=== PATIENT | male | born 1955 | race Caucasian/White ===

== ENCOUNTER → 2016-03-19 | Outpatient (CLI) | payer BC ==
[~2016-03-19] MED LIST: AMOXICOT500 MG; ASPIRIN 81MG TA81 MG; AVAPRO150 MG; BYSTOLIC5 MG; CALCIUM 500 + D1 TA1; CALCIUM CARBONA1 TAB PO; CELEBREX200 MG; CRESTOR5 MG; CYMBALTA60 M1; FLECAINIDE ACE100 MG; FLOMAX 0.4MG C0.4 MG; VITAMIN D1000 IU; VOLTAREN75 MG; VYTORIN 10 MG-21 TAB
== END ==
LOC: LAB 10:05
DX: R97.20 Elevated prostate specific antigen [PSA] (principal)

== ENCOUNTER → 2016-12-03 | Outpatient (CLI) | payer BC | LOC: LAB 14:19 | DX: C61 Malignant neoplasm of prostate (principal); Z90.79 Acquired absence of other genital organ(s) ==

== ENCOUNTER 2016-12-27 09:16 | Day surgery (SDC) | payer BC ==
--- NOTE | 2016-12-27 11:27 | Operative Note ---
Surgeon/Diagnoses Surgeon/Brand Protection Manager(s) Date of procedure: 12/27/16 Surgeon: MD Nico Garcia Diagnoses Pre-op diagnosis: Screening colonoscopy Skin neoplasm of uncertain behavior (5 mm) on mid back Post-op diagnosis Same as preoperative diagnosis, with the addition of the following: Mild hemorrhoidal tags Colon polyps Procedure Procedure Procedure: Colonoscopy with polypectomy Excision of 5 mm skin lesion from mid back Indications: TESSIE SAUCEDA is a 61 year-old Male with a history of need for screening colonoscopy and a somewhat pedunculated skin neoplasm of uncertain behavior along the mid back that has been growing over the past few months. Findings: Bowel preparation moderate Fairly significant colonic tortuosity Fairly severe colonic spasticity Mild hemorrhoidal cushions with no thrombosis or bleeding Cecal polyp RIGHT colon polyp Polyp at 45 cm Adjacent complex polyps at 25 cm Procedure Description: After informed consent was obtained, the patient was taken to the endoscopy suite. IV sedation ensued after he was transferred to the LEFT lateral decubitus position. Digital rectal exam revealed some hemorrhoidal cushions/tags with no thrombosis or bleeding. The colonoscope was placed in position. The entire colon was evaluated. Bowel preparation was moderate with large volume irrigation and suctioning used to improve visualization. The patient had a fairly long and tortuous/spastic colon. Tortuosity was noted throughout. Fairly severe spasticity is also noted throughout the entire colon. Visualization was somewhat limited secondary to the above stated findings. A cecal polyp was excised with cold biopsy forceps. A RIGHT colon polyp was excised with cold biopsy forceps. A polyp at 45 cm was excised cold biopsy forceps. Adjacent complex polyps at [address] by [address] of snare polypectomy. No additional lesions were seen. The colonoscope was carefully removed and the patient was transferred to the procedure room for excision of the skin lesion. The mid back was prepped and draped in a sterile fashion. After infiltration with local anesthetic an elliptical incision was made around the lesion. The specimen was passed off for pathologic evaluation and skin was closed with 4-0 nylon. A sterile dressing was applied and the patient was transferred to recovery in stable condition. EBL (ml): 1 Anesthesia: IV sedation with 11 mg of Versed and 300 g of fentanyl. These note 1 mg of glucagon was also administered secondary to spasticity. Infiltration with 1 percent lidocaine was utilized for the skin lesion. Complications: No immediate Specimens: Cecal polyp RIGHT colon polyp Polyp at 45 cm Adjacent proximal polyps 25 cm (snared) Skin lesion mid back Disposition Disposition: Stable to recovery from where he will be discharged home. She will follow-up in one week. Repeat colonoscopy is pending pathology but will likely be between 2-3 years secondary to moderate bowel preparation, spasticity, and tortuosity. at [id number]
[2016-12-27 15:52] VITALS: BP 142/96
== END 2016-12-27 12:25 | disposition home or self-care (01) ==
LOC: SDC 09:16
PROVIDERS: Surgery
PROC: 0DBH8ZX Excision of Cecum, Via Natural or Artificial Opening Endoscopic, Diagnostic (ICD-10-PCS; 2016-12-27)
PROC: 0DBF8ZX Excision of Right Large Intestine, Via Natural or Artificial Opening Endoscopic, Diagnostic (ICD-10-PCS; 2016-12-27)
PROC: 0HB6XZZ Excision of Back Skin, External Approach (ICD-10-PCS; 2016-12-27)
PROC: 0DBF8ZX Excision of Right Large Intestine, Via Natural or Artificial Opening Endoscopic, Diagnostic (ICD-10-PCS; principal; 2016-12-27 10:00)
DX: Z12.11 Encounter for screening for malignant neoplasm of colon (principal); K63.5 Polyp of colon; D48.5 Neoplasm of uncertain behavior of skin